=== PATIENT | female | born 1975 | race Caucasian/White ===

== ENCOUNTER 2021-06-04 14:49 | Day surgery (SDC) | payer OTHER ==
[2021-06-04] MEDS ORDERED: IRON SUCROSE INJECTION 200 MG in SODIUM CHLORIDE 100 ML IVPB ONE (15:15)
[2021-06-04 15:39] VITALS: TEMP 97.8
[2021-06-04 16:27] VITALS: BP 134/72; PULSE 84
== END 2021-06-04 16:00 | disposition home or self-care (01) ==
LOC: FINFUSION 14:49 → FM/S 14:51 → FINFUSION 16:00
PROVIDERS: ATTEND Family Medicine
PROC: 3E033GC Introduction of Other Therapeutic Substance into Peripheral Vein, Percutaneous Approach (ICD-10-PCS; principal; 2021-06-04)
DX: D50.9 Iron deficiency anemia, unspecified (principal)
CPT/HCPCS: 81025; 96365; J1756